=== PATIENT | female | born 1985 | race Caucasian/White ===

== ENCOUNTER 2023-12-07 11:23 | Emergency (ER) | payer BC, SELFPAY ==
[2023-12-07 11:24] VITALS: BP 155/91; BMI 36.6
[2023-12-07 11:43] VITALS: BP 143/97
[2023-12-07 11:55] LABS: % Basophils 0.4 % (0-2); % Eosinophils 0.3 % (0-6); % Immature Granulocytes 0.4 % (0-0.5); % Lymphocytes 13.5 % (20.5-51.1); % Monocytes 4.1 % (1.7-9.3); % Neutrophils 81.3 % (42.2-75.2); Absolute Basophils 0.1 10^3/uL (0-0.2); Absolute Eosinophils 0.1 10^3/uL (0-0.7); Absolute Immature Granulocytes 0.1 10^3/uL (0-0.05); Absolute Lymphocytes 2.3 10^3/uL (1.2-3.4); Absolute Monocytes 0.7 10^3/uL (0.1-0.6); Absolute Neutrophils 13.7 10^3/uL (1.4-6.5); Hematocrit 40.6 % (37.0-47.0); Hemoglobin 13.7 g/dL (12.0-16.0); Mean Corp Hgb Conc. 33.7 g/dL (33.0-37.0); Mean Corpuscular Hgb 29.6 pg (27.0-31.0); Mean Corpuscular Volume 87.7 fL (81.0-99.0); Mean Platelet Volume 10.1 fL (7.4-10.4); Nucleated Red Blood Cells % 0 %; Platelet Count 316 10^3/uL (130-400); Red Blood Cell Count 4.63 10^6/uL (4.20-5.40); Red Cell Dist. Width 13.3 % (11.5-14.5); White Blood Cell Count 16.9 10^3/uL (4.8-10.8)
[2023-12-07] MEDS: TORADOL 15 MG IV (11:57)
--- NOTE | 2023-12-07 11:57 | ED.GENMED ---
History of Present Illness
General
Chief Complaint: Abdominal Pain
Source: patient and family
Exam Limitations: none
Time Seen by Provider: 12/07/23 11:49
Nursing documentation reviewed up to this point in time: agreed with
Travel History
Have you had any contact with someone who has COVID-19?: No
Do you have any symptoms of coronavirus? Fever > 100 degrees, chills, cough, shortness of breath, sore throat, loss of taste or smell, muscle aches, or headache?: No
History of Present Illness
History of Present Illness:
38-year-old female presents emergency department complaining of right flank pain at 9 AM this morning. She also has nausea and vomiting. She denies any trauma.
Past History
Past History
ED Past Medical History: Other (Pneumonia, PE)
ED Past Surgical History: (X 3)
Social History
Tobacco: Non-smoker
Alcohol: None
Drug: None
Personal:
Living: with family
Review of Systems
Review of Systems
Allergies reviewed?: Yes
All Other Systems: Not applicable
Constitutional: Reports no symptoms
EENT: Reports no symptoms
Respiratory: Reports no symptoms
Cardiac: Reports no symptoms
ABD/GI: Reports nausea and vomiting
: Reports flank pain
Musculoskeletal: Reports no symptoms
Skin: Reports no symptoms
Neurological: Reports no symptoms
Endocrine: Reports no symptoms
Hematologic/Lymphatic: Reports no symptoms
Psychiatric: Reports no symptoms
Phy Exam
Physical Exam
Physical Exam:
Physical Exam
General: Appears uncomfortable, afebrile
Neck: supple. no meningeal signs. normal posterior pharynx
Heart: s1/s2 regular rate and rhythm, no murmur. equal radial
pulses.
HEENT: Pupils equal round reactive to light, EOMI
Lungs: no acute respiratory distress. clear bilaterally
Abdomen: normal bowel sounds. not tender. no CVAT
Neuro: alert and oriented. no focal neurological deficits cranial nerves II through XII intact
Skin: no rash
Psychiatric: well kept. interactive and cooperative
Extremities: no edema. no calf tenderness. negative homans. good distal pulses
Course
Orders/Labs/Results
Orders:
Orders
12/07/23 11:36
Test Result ONCE
12/07/23 11:45
Complete Blood Count/With Diff Urgent
Comprehensive Metabolic Panel Urgent
HCG, Serum Qualitative Screen Urgent
Lipase Urgent
12/07/23 11:50
Ondansetron Injectable [Zofran] 4 mg .ROUTE .STK-MED ONE
12/07/23 11:53
0.9% Sodium Chloride 1000 ml [Nss] 1,000 ml IV BOLUS
Ketorolac [Toradol] 15 mg IV NOW STA
12/07/23 11:55
CT Abd/pel Without Iv Or Oral Urgent
Comment:
Reason For Exam: right flank pain
Ondansetron Injectable [Zofran] 4 mg IV NOW STA
12/07/23 13:13
Urinalysis Reflex To Culture Urgent
Date Specimen was Collected: 12/07/23
Time Specimen was Collected: 13:03
Urine Microscopic Reflex Cult Urgent
Urine Culture Urgent
JANAK Source: U
Specimen Description:
Date Specimen was Collected: 12/07/23
Time Specimen was Collected: 13:03
Abnormal Lab Results
12/07/23 12/07/23
11:45 13:13
WBC 16.9 H 10^3/uL
(4.8-10.8)
Abs Immat Gran (auto) 0.1 H 10^3/uL
(0-0.05)
Absolute Neuts (auto) 13.7 H 10^3/uL
(1.4-6.5)
Absolute Monos (auto) 0.7 H 10^3/uL
(0.1-0.6)
Neutrophils % 81.3 H %
(42.2-75.2)
Lymphocytes % 13.5 L %
(20.5-51.1)
Chloride 109 H mmol/L
(98-107)
Carbon Dioxide 19 L mmol/L
(22-30)
Glucose 149 H mg/dl
(70-99)
Urine Ketones 3+ A
(Negative)
Ur Occult Blood Reflex 4+ A
(Negative)
Leukocyte Esterase Rfl 1+ A
(Negative)
Urine RBC 30-40 A /HPF
(0-2)
Urine WBC (Reflex) 11-15 A /HPF
(0-5)
Urine Bacteria (Reflex) Moderate A
(Negative)
12/07/23 11:45
12/07/23 11:45
Vital Signs
Initial and Last Documented VS:
Initial Vital Signs
Temp Pulse Resp BP Pulse Ox
97.6 F 98 24 155/91 100
12/07/23 11:24 12/07/23 11:24 12/07/23 11:24 12/07/23 11:24 12/07/23 11:24
Last Documented Vital Signs
Temp Pulse Resp BP Pulse Ox
97.6 F 69 13 112/68 100
12/07/23 11:24 12/07/23 14:00 12/07/23 14:00 12/07/23 14:00 12/07/23 11:24
MDM/Problems Addressed
Differential Diagnosis Includes:
Appendicitis, kidney stone, pyelonephritis
MDM/Problems Addressed:
38-year-old female with right ureteral calculus, no signs UTI. Stable for discharge. Follow-up with urology.
Chronic conditions affecting care: Previous abdomnial surgery
Acute Exacerbation and/or Progression of Chronic Illness: Previous abdomnial surgery
*Radiology
Radiology exam reviewed: radiology read reviewed (CT abdomen pelvis shows 5 mm calculus at right UVJ, millimeter intrarenal calculus right)
*Pulse Oximetry
Patient hypoxic: no
*EKG
Interpreted by ED Provider?: NA
*Staff Nuclear Medicine Technologist Interpretation
Rate: Staff Nuclear Medicine Technologist- N/A
*Critical Care Note
Total Time (30-74mins, 75-104mins- exclusive of procedures): Not Applicable
Patient Management
Social determinants of health affecting care: Living situation and Strong social support
Escalation/DeEscalation of care consider admission/obs:
Admit not indicated
ED Attending Note
-
Portions of this chart may have been created with voice recognition software.� Occasional wrong word or��sound alike� substitutions may have occurred due to the inherent limitations of voice recognition software.
Discharge Plan
Departure
Patient Disposition: Home (Routine Discharge)
Date of Disposition: 12/07/23
Time of Disposition: 14:28
Patient with high blood pressure during this ER visit?: Yes
Condition: Good
Discharge Problem:
Calculus of distal right ureter
Instructions: Kidney Stones (DC), Renal Colic (DC), BLOOD PRESSURE
Prescriptions:
No Action
acetaminophen 325 mg Tablet
650 mg PO TID Qty: 60 0RF
amlodipine 5 mg Tablet
5 mg PO DAILY Qty: 30 0RF
Eliquis 5 mg tablet
5 mg PO BID Qty: 30 2RF
Rx Instructions:
9take 10 mg (2tab) bid for 10 days and than 5 mg (1 tab) BID
Referrals:
Alberto Prescott MD [Active] - Call in 1-3 days for appt
UNKNOWN - PT DOES,NOT KNOW [Family Provider] -
Interventions
Interventions:
*Risk Screen - Suicide Last Done: 03/28/24 11:24
*General Assessment Last Done: 12/07/23 14:41
*Neglect/Abuse Screening Last Done: 12/07/23 11:24
ED- Fall Risk Assessment Last Done: 12/07/23 12:15
*ED COVID-19 Vaccine History Last Done: 12/07/23 11:24
*Nursing Disposition Last Done: 12/07/23 14:41
YL-Gkfhel-Ipysymdbut Assessment Last Done: 12/07/23 12:15
Discharge Date and Time
Discharge Date/Time: 12/07/23 14:45
Print Language: ANGOLAN
[2023-12-07] MEDS: NSS 1000 IV (11:58)
[2023-12-07 12:00] VITALS: BP 124/102
[2023-12-07] MEDS: ZOFRAN 4 MG IV (12:01)
[2023-12-07 12:07] LABS: HCG, Serum Qualitative Screen Negative
[2023-12-07 12:08] LABS: ALT (SGPT) 19 U/L (0-35); AST (SGOT) 23 U/L (14-36); Albumin 4.9 g/dl (3.5-5.0); Alkaline Phosphatase 72 U/L (38-126); Blood Urea Nitrogen 12 mg/dl (7-17); Calcium 9.7 mg/dl (8.4-10.2); Carbon Dioxide 19 mmol/L (22-30); Chloride 109 mmol/L (98-107); Estimated Creatinine Clearance 113 ml/min; Glucose 149 mg/dl (70-99); Lipase 88 U/L (23-300); Potassium 4.3 mmol/L (3.5-5.1); Sodium 138 mmol/L (135-145); Total Bilirubin 0.9 mg/dl (0.2-1.3); eGFR > 60.00
[2023-12-07 13:09] VITALS: BP 122/86
[2023-12-07 13:21] LABS: Urine Albumin Trace (Neg - Trace); Urine Bilirubin Negative (Negative); Urine Character Clear (Clear); Urine Color Yellow; Urine Glucose Negative (Negative); Urine Ketone 3+ (Negative); Urine Leukocyte 1+ (Negative); Urine Nitrite Negative (Negative); Urine Occult Blood 4+ (Negative); Urine Specific Gravity 1.015 (<1.030); Urine Urobilinogen Negative (Neg - 1+)
[2023-12-07 13:55] LABS: Urine Mucus Moderate; Urine Squamous Cell 26-30 /LPF (Few)
[2023-12-07 13:56] LABS: Urine Bacteria Moderate (Negative); Urine Red Blood Cell 30-40 /HPF (0-2)
[2023-12-07 14:00] VITALS: BP 112/68
== END 2023-12-07 14:45 | disposition home or self-care (01) ==
LOC: EMR 11:23
PROVIDERS: EMERGENCY PHYSICIAN Emergency Medicine
DX: N20.2 Calculus of kidney with calculus of ureter (principal); Z98.891 History of uterine scar from previous surgery
CPT/HCPCS: 99284; 96374; 96375; 96361; 74176; 80053; 81003; 81015; 83690; 84703; 85025; 87086

== ENCOUNTER → 2024-12-28 11:37 | Outpatient (REF) | payer BC, SELFPAY | LOC: WDC 11:37 | PROVIDERS: ATTENDING PHYSICIAN Family Medicine | DX: Z12.31 Encounter for screening mammogram for malignant neoplasm of breast (principal) | CPT/HCPCS: 77063; 77067 ==

== ENCOUNTER → 2025-01-08 10:02 | Outpatient (REF) | payer BC, SELFPAY | LOC: WDC 10:02 | PROVIDERS: ATTENDING PHYSICIAN Family Medicine | DX: R92.8 Other abnormal and inconclusive findings on diagnostic imaging of breast (principal) | CPT/HCPCS: 76642 ==

== ENCOUNTER → 2025-02-14 09:33 | Outpatient (REF) | payer BC, SELFPAY | LOC: RAD 09:33 | PROVIDERS: ATTENDING PHYSICIAN Specialist | DX: N20.9 Urinary calculus, unspecified (principal) | CPT/HCPCS: 74018 ==